=== PATIENT | female | born 2000 | race American Indian/Alaskan Native ===

== ENCOUNTER 2020-03-05 13:38 | Emergency (ER) | payer SELFPAY ==
[2020-03-05 14:40] LABS: Basophils % (Auto) 0.5 % (0.0-1.8); Eosinophils # (Auto) 0.1 K/mm3 (0.0-0.4); Eosinophils % (Auto) 1.8 % (0.0-4.3); Hematocrit 33.8 % (30.3-42.9); Hemoglobin 11.4 gm/dl (10.1-14.3); Lymphocytes # (Auto) 1.1 K/mm3 (1.2-5.4); Lymphocytes % (Auto) 25.9 % (13.4-35.0); Mean Corpuscular HGB Conc 34 % (30-34); Mean Corpuscular Volume 89 fl (79-97); Monocytes # (Auto) 0.3 K/mm3 (0.0-0.8); Monocytes % (Auto) 6.7 % (0.0-7.3); Platelet Count 172 K/mm3 (140-440); Red Blood Count 3.79 M/mm3 (3.65-5.03); Red Cell Distribution Width 15.3 % (13.2-15.2)
[2020-03-05 14:54] LABS: BUN/Creatinine Ratio 15; Blood Urea Nitrogen 12 mg/dL (7-17); Calcium 9.5 mg/dL (8.4-10.2); Hemolysis Index 6
[2020-03-05 14:56] LABS: Bacteria,Urine 1+ /HPF (Negative); Bilirubin,Urine NEG (Negative); Blood,Urine LG (Negative); Color,Urine Red (Yellow); Urobilinogen,Urine < 2.0 mg/dL (<2.0)
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
[2020-03-05 15:00] LABS: Amphetamine Screen,Urine PRESUMPTIVE NEGATIVE; Benzodiazepines Screen,Urine PRESUMPTIVE NEGATIVE; Cannabinoid Screen,Urine PRESUMPTIVE NEGATIVE; Cocaine Screen,Urine PRESUMPTIVE NEGATIVE; Methadone Screen,Urine PRESUMPTIVE NEGATIVE; Opiate Screen,Urine PRESUMPTIVE NEGATIVE
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
[2020-03-06] MEDS ORDERED: ZIPRASIDONE MESYLATE 20 MG VIAL IM PRN (13:43)
[2020-03-06] MEDS: risperiDONE 0.25 MG TAB PO SCH ×2 (14:13→22:30)
[2020-03-06] MEDS: SERTRALINE 25 MG TAB PO SCH (14:13)
[2020-03-06] MEDS: traZODone 50 MG TAB PO SCH (22:30)
--- NOTE | 2020-03-07 10:12 | Progress Note ---
Subjective - Reason for Consult Consult date: 03/07/20 Reason for consult: aggression - Chief Complaint Chief complaint: I reviewed the patient's medical record and discussed the patient's progress with the nursing staff. During my interview with the patient today, she is sitting in her room. She is a/o x 3. She makes fair eye contact. Her affect is flat. She verbalizes being "depressed, but not that much." She denies SI/HI. She also denies hallucinations of any kind. When informing the patient I had spoken with her mom yesterday as she had given me permission to do, and telling her that mom had informed me of her hearing voices and having conversations with them, the patient replies, "oh yea, I forgot to tell you I hear voices. It's spiritual. My mom doesn't understand that." When asking the patient what are the voices saying to her, she states, "nothing really." I asked the patient if the voices tell her to grab knives as mom had told me, the patient replied, "Yes, but if I get a knife it's because people keep fighting me." She then states, "I'm in danger." I advised the patient that I didn't feel she was stable enough to go home, for her safety and the safety of others. The patient began to cry out loud and could be heard into the hallway. She starting yelling "all my momma do is tell lies." REVIEW OF SYSTEMS Constitutional: Negative for weight loss ENT: Negative for stridor Respiratory: Negative for cough or hemoptysis All other systems reviewed and are negative MENTAL STATUS EXAMINATION General Appearance: Dressed appropriately Behavior: Calm and cooperative. Fair eye contact Mood: "depressed" Affect: Flat, congruent with mood Speech: Normal tone and pace Thought Process: Goal oriented Thought Content: Suicidal Ideation: Denies Homicidal Ideation: Yes Hallucinations: Auditory, possible command Delusions: Yes, paranoid Insight and Judgment: Limited Memory/Cognition: Limited Assessment Major Depressive Disorder, severe With Psychotic Features Plan MEDICATIONS: Increase Risperidone 0.5mg po BID Increase Zoloft 50mg po daily Depakote DR 125mg po BID Risks, benefits and alternatives of medications discussed with the patient, questions answered and consent obtained from patient. PSYCHOTHERAPY: Supportive psychotherapy provided MEDICAL: Per primary team DELIRIUM PRECAUTIONS: Please re-orient patient frequently, keep lights on during the day, and minimize benzodiazepines and opiates as these medications could worsen patient's confusion. INTELLIGENCE GROUP SUPERVISOR: Per Medical team. DISPOSITION: The patient meets the requirement for acute inpatient psychiatric hospitalization at this time. She may transfer to an acute psychiatric facility once medically clear. The treatment plan was explained to the patient, including benefit and side effects of medications. Will continue to follow the patient until she is transferred or her condition improves. Thank you for the consult. Please contact with any questions or concerns. Mental Status Exam - Vital signs Last Vital Signs Temp 98.2 F 03/07/20 09:31 Pulse 72 03/07/20 09:31 Resp 17 03/07/20 09:31 BP 117/81 03/07/20 09:31 Pulse Ox 98 03/07/20 09:31
[2020-03-07] MEDS ORDERED: SERTRALINE 25 MG TAB PO SCH (10:13)
[2020-03-07] MEDS: DIVALPROEX DR 125 MG TAB PO SCH ×2 (13:40→22:36)
[2020-03-07] MEDS: SERTRALINE 25 MG TAB PO SCH (13:41)
[2020-03-07] MEDS: risperiDONE 0.25 MG TAB PO SCH ×2 (13:41→22:37)
[2020-03-07] MEDS: traZODone 50 MG TAB PO SCH (22:36)
[2020-03-08] MEDS: DIVALPROEX DR 125 MG TAB PO SCH ×3 (10:02→23:18)
[2020-03-08] MEDS: risperiDONE 0.25 MG TAB PO SCH ×3 (10:06→23:25)
--- NOTE | 2020-03-08 10:06 | Progress Note ---
Subjective - Reason for Consult Consult date: 03/08/20 Reason for consult: aggression - Chief Complaint Chief complaint: I reviewed the patient's medical record and discussed the patient's progress with the nursing staff. During my interview with the patient today, she is sitting in her room. She is a/o x 3. She is sitting staring at the wall. I hear her speaking loudly in an angry tone as I'm walking up. I ask the patient who was she speaking to. She replies, "nobody." She makes intermittent eye contact. Her affect is flat. She is irritable and agitated. Her answers are short. She says "pissed" when asked about her mood. When asked about thoughts of self harm or hallucinations, she replied, "no." She also replied "no" when asked about homicidal thoughts. The patient asks, "when am I getting out of here. I got things to do." She then jumps up and goes to the phone. The patient is heard cursing and screaming at the person on the phone. REVIEW OF SYSTEMS Constitutional: Negative for weight loss ENT: Negative for stridor Respiratory: Negative for cough or hemoptysis All other systems reviewed and are negative MENTAL STATUS EXAMINATION General Appearance: Dressed appropriately Behavior: Irritable, agitated. Intermittent eye contact Mood: "pissed" Affect: Flat, congruent with mood Speech: Increased tone Thought Process: Goal oriented Thought Content: Suicidal Ideation: Denies Homicidal Ideation: Denies Hallucinations: Auditory, possible command Delusions: Yes, paranoid Insight and Judgment: Limited Memory/Cognition: Limited Assessment Major Depressive Disorder, severe With Psychotic Features Plan MEDICATIONS: Increase Risperidone 1mg po BID Increase Depakote DR 250mg po BID Risks, benefits and alternatives of medications discussed with the patient, questions answered and consent obtained from patient. PSYCHOTHERAPY: Supportive psychotherapy provided MEDICAL: Per primary team DELIRIUM PRECAUTIONS: Please re-orient patient frequently, keep lights on during the day, and minimize benzodiazepines and opiates as these medications could worsen patient's confusion. MACHINE OPERATOR HOP PICKER: Per Medical team. DISPOSITION: The patient meets the requirement for acute inpatient psychiatric hospitalization at this time. She may transfer to an acute psychiatric facility once medically clear. The treatment plan was explained to the patient, including benefit and side effects of medications. Will continue to follow the patient until she is transferred or her condition improves. Thank you for the consult. Please contact with any questions or concerns. Mental Status Exam - Vital signs Last Vital Signs Temp 98.2 F 03/08/20 08:37 Pulse 90 03/08/20 08:37 Resp 18 03/08/20 08:37 BP 111/81 03/08/20 08:37 Pulse Ox 96 03/08/20 08:37
[2020-03-08] MEDS: traZODone 50 MG TAB PO SCH (23:18)
[2020-03-08] MEDS: risperiDONE 1 MG TAB PO SCH (23:18)
[2020-03-09] MEDS ORDERED: SERTRALINE 50 MG TAB PO SCH (10:00)
[2020-03-09] MEDS: risperiDONE 1 MG TAB PO SCH ×2 (10:50→21:50)
[2020-03-09] MEDS: DIVALPROEX DR 125 MG TAB PO SCH ×2 (10:51→21:56)
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
[2020-03-09] MEDS ORDERED: risperiDONE 1 MG TAB PO ONE (13:00)
[2020-03-09] MEDS ORDERED: SERTRALINE 50 MG TAB PO ONE (13:00)
[2020-03-09] MEDS: traZODone 50 MG TAB PO SCH (21:55)
[2020-03-10] MEDS ORDERED: SERTRALINE 50 MG TAB PO SCH (10:00)
--- NOTE | 2020-03-10 10:49 | Progress Note ---
Subjective - Reason for Consult Consult date: 03/10/20 Reason for consult: agression - Chief Complaint Chief complaint: I reviewed the patient's medical record and discussed the patient's progress with the nursing staff. The nurse caring for the patient today, Maria Victoria, states the patient has been calm, cooperative and polite. She expressed no thoughts of self harm or had no hallucinations. During my interview with the patient today, she is lying down. She is awake. She is a/o x 3. She is calm and cooperative. She makes fair eye contact. She states, "I be depressed on and off, but I'm much better being on the medicines." She denies SI/HI. She denies hallucinations of any kind. She describes her appetite and sleep cycle as "good." The patient asks me if I would consider sending her home, if her mom approves. She also asks me to call her mom and give her updates. Spoke with mom, Oanh at [phone]. She says that she feels the patient has calmed down. Mom says the patient gets like this when she is off her medications because she refuses to take them. Mom says she has arranged for the patient to get an injection tomorrow morning. Mom wants to see how Rosetta progresses over night, and consider taking the patient home. I advised mom this is something I would strongly consider if the patient's night is uneventful. REVIEW OF SYSTEMS Constitutional: Negative for weight loss ENT: Negative for stridor Respiratory: Negative for cough or hemoptysis All other systems reviewed and are negative MENTAL STATUS EXAMINATION General Appearance: Dressed appropriately Behavior: Calm and cooperative Mood: "much better" Affect: Flat Speech: Normal tone and pace Thought Process: Goal oriented Thought Content: Suicidal Ideation: Denies Homicidal Ideation: Denies Hallucinations: Denies Delusions: Denies Insight and Judgment: Limited Memory/Cognition: Limited Assessment Major Depressive Disorder, severe With Psychotic Features Plan MEDICATIONS: No changes Risks, benefits and alternatives of medications discussed with the patient, questions answered and consent obtained from patient. PSYCHOTHERAPY: Supportive psychotherapy provided MEDICAL: Per primary team DELIRIUM PRECAUTIONS: Please re-orient patient frequently, keep lights on during the day, and minimize benzodiazepines and opiates as these medications could worsen patient's confusion. GRAIN BROKER: Per Medical team. DISPOSITION: The patient meets the requirement for acute inpatient psychiatric hospitalization at this time. She may transfer to an acute psychiatric facility once medically clear. Will consider discharging the patient home with her mother tomorrow. The treatment plan was explained to the patient and her mother, including bene fit and side effects of medications. They both verbalize understanding of plan. Will continue to follow the patient until she is transferred or her condition improves. Thank you for the consult. Please contact with any questions or concerns. Mental Status Exam - Vital signs Last Vital Signs Temp 98.1 F 03/10/20 09:45 Pulse 95 H 03/10/20 09:45 Resp 16 03/10/20 09:45 BP 99/68 03/10/20 09:45 Pulse Ox 98 03/10/20 09:45
[2020-03-10] MEDS: risperiDONE 1 MG TAB PO SCH (11:15)
[2020-03-10] MEDS: DIVALPROEX DR 125 MG TAB PO SCH (11:16)
[2020-03-10 11:37] VITALS: BP 99/68
== END 2020-03-10 11:30 ==
LOC: EEVIPCON 13:38 → ED 13:38
DX: F31.9 Bipolar disorder, unspecified (principal); R45.6 Violent behavior; M25.561 Pain in right knee; I10 Essential (primary) hypertension; E11.9 Type 2 diabetes mellitus without complications; Z79.899 Other long term (current) drug therapy
CPT/HCPCS: 36415; 80048; 80307; 80320; 81001; 84703; 85025; G0480